=== PATIENT | female | born 1990 | race Caucasian/White ===

== ENCOUNTER → 2018-10-27 | Outpatient (CLI) | payer OTHER | LOC: LAB 13:26 → LAB SHORT 13:26 | DX: Z34.93 Encounter for supervision of normal pregnancy, unspecified, third trimester (principal) | CPT/HCPCS: 87081; 87653 ==

== ENCOUNTER 2018-11-19 18:31 | Inpatient (IN) | payer OTHER ==
[~2018-11-19] VITALS: Ht 177.8 cm; Wt 0.3 kg
[2018-11-19] MEDS ORDERED: ZOLOFT20 MG/ML (19:01)
[2018-11-19] MEDS ORDERED: Verotin-Gr Cap1 EACH (19:02)
[2018-11-19 19:08] LABS: BASOPHILS ABSOLUTE AUTO 0.02 K/mm3 (0.00-0.23); BASOPHILS PERCENT AUTO 0 % (0-2); EOSINOPHILS ABSOLUTE AUTO 0.07 K/mm3 (0.00-0.68); EOSINOPHILS PERCENT AUTO 1 % (0-6); Hematocrit 29.9 % (33.0-51.0); Hemoglobin 9.7 g/dL (11.5-16.0); IMMATURE GRAN ABSOLUTE AUTO 0.06 K/mm3 (0.00-0.10); IMMATURE GRAN PERCENT AUTO 1 % (0-1); LYMPHOCYTES ABSOLUTE AUTO 1.67 K/mm3 (0.84-5.20); LYMPHOCYTES PERCENT AUTO 15 % (21-46); MONOCYTES ABSOLUTE AUTO 0.99 K/mm3 (0.16-1.47); MONOCYTES PERCENT AUTO 9 % (4-13); Mean Corpuscular HGB 27.9 pg (26.0-34.0); Mean Corpuscular HGB Conc 32.4 g/dL (31.5-36.5); Mean Corpuscular Volume 86 fL (80-100); Mean Platelet Volume 10.7 fL (9.1-12.4); NEUTROPHILS ABSOLUTE AUTO 8.04 K/mm3 (1.96-9.15); NEUTROPHILS PERCENT AUTO 74 % (41-73); Platelet Count 190 K/mm3 (150-400); RDW Coefficient Variation 12.5 % (11.7-14.2); RDW Standard Deviation 38.9 fL (35.1-46.3); Red Blood Cell Count 3.48 M/mm3 (3.80-5.20); White Blood Cell Count 10.85 K/mm3 (4.00-11.30)
[2018-11-20 05:59] LABS: BASOPHILS ABSOLUTE AUTO 0.02 K/mm3 (0.00-0.23); BASOPHILS PERCENT AUTO 0 % (0-2); EOSINOPHILS ABSOLUTE AUTO 0.05 K/mm3 (0.00-0.68); EOSINOPHILS PERCENT AUTO 0 % (0-6); Hemoglobin 9.2 g/dL (11.5-16.0); IMMATURE GRAN ABSOLUTE AUTO 0.11 K/mm3 (0.00-0.10); IMMATURE GRAN PERCENT AUTO 1 % (0-1); LYMPHOCYTES ABSOLUTE AUTO 1.72 K/mm3 (0.84-5.20); LYMPHOCYTES PERCENT AUTO 11 % (21-46); MONOCYTES ABSOLUTE AUTO 0.83 K/mm3 (0.16-1.47); MONOCYTES PERCENT AUTO 5 % (4-13); Mean Corpuscular HGB 27.2 pg (26.0-34.0); Mean Corpuscular HGB Conc 30.7 g/dL (31.5-36.5); Mean Platelet Volume 10.5 fL (9.1-12.4); NEUTROPHILS ABSOLUTE AUTO 13.11 K/mm3 (1.96-9.15); NEUTROPHILS PERCENT AUTO 83 % (41-73); Platelet Count 159 K/mm3 (150-400); RDW Coefficient Variation 12.7 % (11.7-14.2); RDW Standard Deviation 41.1 fL (35.1-46.3); Red Blood Cell Count 3.38 M/mm3 (3.80-5.20); White Blood Cell Count 15.84 K/mm3 (4.00-11.30)
[2018-11-20 06:00] LABS: Mean Corpuscular Volume 89 fL (80-100)
--- NOTE | 2018-11-21 12:20 | NUR ---
DISCHARGE INSTRUCTIONS, WRITTEN AND VERBAL, GIVEN TO PT AND . ALL QUESTIONS AND CONCERNS ANSWERED. FOLLOW UP APPOINTMENT SCHEDULE, MMR VACCINE GIVEN. WRITTEN PRESCRIPTIONS HANDED TO PT. ALL PERSONAL BELONGINGS RETURNED. PT IS DISCHARGED HOME, DRIVEN BY .
== END 2018-11-21 12:55 | disposition home or self-care (01) | DRG 807 ==
LOC: OBS 18:31 → BC 18:42
PROVIDERS: ADMIT Registered Nurse Community Health
PROC: 10E0XZZ Delivery of Products of Conception, External Approach (ICD-10-PCS; principal; 2018-11-20)
PROC: 0KQM0ZZ Repair Perineum Muscle, Open Approach (ICD-10-PCS; 2018-11-20)
PROC: 10907ZC Drainage of Amniotic Fluid, Therapeutic from Products of Conception, Via Natural or Artificial Opening (ICD-10-PCS; 2018-11-20)
PROC: 6A550ZT Pheresis of Cord Blood Stem Cells, Single (ICD-10-PCS; 2018-11-20)
DX: O69.81X0 Labor and delivery complicated by cord around neck, without compression, not applicable or unspecified (principal); Z37.0 Single live birth; Z3A.39 39 weeks gestation of pregnancy; O70.1 Second degree perineal laceration during delivery
CPT/HCPCS: 36415; 51702; 85025; 90707; J1885; J2210; J2405; J2590; J3010; J7120

== ENCOUNTER → 2019-01-12 | Outpatient (CLI) | payer OTHER ==
[~2019-01-12] MED LIST: Verotin-Gr Cap1 EACH; ZOLOFT20 MG/ML
== END ==
LOC: LAB 11:27 → LAB SHORT 11:27
PROVIDERS: Registered Nurse Community Health
DX: Z12.4 Encounter for screening for malignant neoplasm of cervix (principal); N89.8 Other specified noninflammatory disorders of vagina
CPT/HCPCS: G0123

== ENCOUNTER → 2020-09-05 | Outpatient (CLI) | payer OTHER ==
[~2020-09-05] MED LIST changes: +HYDR1TAB94 PO
[2020-09-05 14:34] LABS: Hematocrit 33.8 % (33.0-51.0); Hemoglobin 10.3 g/dL (11.5-16.0)
[2020-09-05 16:20] LABS: Free Thyroxine 0.8 ng/dL (0.70-1.60); Thyroid Stimulating Hormone 1.78 uIU/mL (0.360-4.800); Triiodothyronine, Free 2.4 pg/mL (2.18-3.98)
== END ==
LOC: LAB 13:04 → LAB SHORT 13:04
PROVIDERS: Registered Nurse Community Health
DX: N92.0 Excessive and frequent menstruation with regular cycle (principal); N92.6 Irregular menstruation, unspecified; N94.6 Dysmenorrhea, unspecified
CPT/HCPCS: 84439; 84443; 84481; 85014; 85018

== ENCOUNTER 2021-08-09 11:57 | Day surgery (SDC) | payer OTHER ==
[~2021-08-09] VITALS: Ht 177.8 cm; Wt 76.5 kg
[~2021-08-09 11:57] MED LIST changes: +BUPR100 PO; +BUSPIRONE HCL7.5 M1 PO; +ORILISSA150 MG PO; +PRED20 PO
--- NOTE | 2021-08-09 14:17 | NUR ---
TURNED OVER PATIENT CARE TO DAGMAR LOPEZ, AFTER REPORT WAS GIVEN.
--- NOTE | 2021-08-09 14:57 | NUR ---
UP TO BATHROOM AT HIS TIME
--- NOTE | 2021-08-09 15:16 | NUR ---
ASSUMED CARE ABOUT 1420 VSS NO CHANGE SINCE ASSESSMENT.
--- NOTE | 2021-08-09 15:17 | NUR ---
MEDICATED PER ANNESTHESIOLOGIST FOR HEAD ACHE.
[2021-08-10 04:46] LABS: BASOPHILS ABSOLUTE AUTO 0.03 K/mm3 (0.00-0.23); BASOPHILS PERCENT AUTO 0 % (0-2); EOSINOPHILS PERCENT AUTO 0 % (0-6); Hematocrit 33.4 % (33.0-51.0); Hemoglobin 10.8 g/dL (11.5-16.0); IMMATURE GRAN ABSOLUTE AUTO 0.09 K/mm3 (0.00-0.10); IMMATURE GRAN PERCENT AUTO 1 % (0-1); LYMPHOCYTES ABSOLUTE AUTO 1.01 K/mm3 (0.84-5.20); LYMPHOCYTES PERCENT AUTO 6 % (21-46); MONOCYTES ABSOLUTE AUTO 0.68 K/mm3 (0.16-1.47); MONOCYTES PERCENT AUTO 4 % (4-13); Mean Corpuscular HGB 27.1 pg (26.0-34.0); Mean Corpuscular HGB Conc 32.3 g/dL (31.5-36.5); Mean Corpuscular Volume 84 fL (80-100); Mean Platelet Volume 10.1 fL (9.1-12.4); NEUTROPHILS ABSOLUTE AUTO 16.35 K/mm3 (1.96-9.15); NEUTROPHILS PERCENT AUTO 90 % (41-73); Platelet Count 276 K/mm3 (150-400); RDW Coefficient Variation 13.2 % (11.7-14.2); RDW Standard Deviation 40.9 fL (35.1-46.3); Red Blood Cell Count 3.99 M/mm3 (3.80-5.20); White Blood Cell Count 18.16 K/mm3 (4.00-11.30)
--- NOTE | 2021-08-10 08:00 | NUR ---
SUMMARY PT SLEEPING AFTER PO PAINMEDS. TORADOL GIVENTHIS AM TO INCREASE PAIN CONTROL WITHOUT DROWSY EFFECT.HOGAN DCD PER ORDERS.PT CURRENTLY WITHOUT VAG BLEED.
--- NOTE | 2021-08-10 08:45 | NUR ---
08/10/21 0844 PapMarko leal CORRECTION: CHARTED SPECIMEN AND INPUTED ORDERS
[2021-08-10] MEDS ORDERED: DOCU100 PO (15:19)
[2021-08-10] MEDS ORDERED: IBUP400 PO (15:20)
[2021-08-10] MEDS ORDERED: DULCOLAX400 MG/5 M PO (15:21)
[2021-08-10] MEDS ORDERED: PROM25 PO (15:22)
[2021-08-10] MEDS ORDERED: Percocet 5-3251 EACH PO (15:22)
[2021-08-10] MEDS ORDERED: SENNA LAXATIVE8.6 MG PO (15:23)
[2021-08-10] MEDS ORDERED: SIME80CH PO (15:24)
--- NOTE | 2021-08-10 17:04 | NUR ---
PT REPORTS VALENZUELA IS CONTROLLED TO ACCEPTABLE LEVEL WITH PO MEDS. DALTON FOOD AND FLUIDS WITHOUT NAUSEA. AMBULATING IN ROOM, VOIDING CLEAR YELLOW URINE, PT REPORTS PINKED TINGED TOILET PAPER AFTER WIPING MATT AREA.
--- NOTE | 2021-08-10 19:12 | NUR ---
DR CH HERE TO SEE PATIENT AND PATIENT CLEARED FOR DISCHARGE. ABD BINDER GIVEN TO PATIENT FOR COMFORT. DISCHARGE INSTRUCTIONS REVIEWED WITH PATIENT AND HER WHO VERBALIZE UNDERSTANDING OF. DISCHARGED TO HOME
== END 2021-08-10 19:15 | disposition home or self-care (01) ==
LOC: ORSCMMR 11:57 → ORD 13:30 → SURS 19:50 → ORSCMMR 08-10 19:15
PROVIDERS: Obstetrics & Gynecology
PROC: 0U5F4ZZ Destruction of Cul-de-sac, Percutaneous Endoscopic Approach (ICD-10-PCS; principal; 2021-08-09 13:30)
PROC: 8E0W4CZ Robotic Assisted Procedure of Trunk Region, Percutaneous Endoscopic Approach (ICD-10-PCS; principal; 2021-08-09 13:30)
PROC: 0UT94ZZ Resection of Uterus, Percutaneous Endoscopic Approach (ICD-10-PCS; principal; 2021-08-09 13:30)
PROC: 0UT74ZZ Resection of Bilateral Fallopian Tubes, Percutaneous Endoscopic Approach (ICD-10-PCS; principal; 2021-08-09 13:30)
DX: N92.0 Excessive and frequent menstruation with regular cycle (principal); N94.6 Dysmenorrhea, unspecified; N70.91 Salpingitis, unspecified; K66.0 Peritoneal adhesions (postprocedural) (postinfection); N80.3 Endometriosis of pelvic peritoneum; Z79.899 Other long term (current) drug therapy
CPT/HCPCS: 58571; 58662; S2900; 36415; 85025; 86850; 86900; 86901; 88305; A9270; J0690; J1100; J1885; J2250; J2370; J2405; J2704; J3010; J7120

== ENCOUNTER → 2021-08-18 | Outpatient (CLI) | payer OTHER ==
[~2021-08-18] MED LIST changes: +DOCU100 PO; +DULCOLAX400 MG/5 M PO; +IBUP400 PO; +PROM25 PO; +Percocet 5-3251 EACH PO; +SENNA LAXATIVE8.6 MG PO; +SIME80CH PO
== END ==
LOC: LAB SHORT 10:32
DX: R30.9 Painful micturition, unspecified (principal)
CPT/HCPCS: 87086

== ENCOUNTER → 2023-09-12 | Outpatient (CLI) | payer BC ==
[2023-09-12 17:01] LABS: BASOPHILS ABSOLUTE AUTO 0.08 K/mm3 (0.00-0.23); BASOPHILS PERCENT AUTO 1 % (0-2); EOSINOPHILS ABSOLUTE AUTO 0.51 K/mm3 (0.00-0.68); EOSINOPHILS PERCENT AUTO 5 % (0-6); Hematocrit 41.3 % (33.0-51.0); Hemoglobin 14.1 g/dL (11.5-16.0); IMMATURE GRAN ABSOLUTE AUTO 0.03 K/mm3 (0.00-0.10); IMMATURE GRAN PERCENT AUTO 0 % (0-1); LYMPHOCYTES ABSOLUTE AUTO 2.03 K/mm3 (0.84-5.20); LYMPHOCYTES PERCENT AUTO 18 % (21-46); MONOCYTES PERCENT AUTO 5 % (4-13); Mean Corpuscular HGB 31.2 pg (26.0-34.0); Mean Corpuscular HGB Conc 34.1 g/dL (31.5-36.5); Mean Corpuscular Volume 91 fL (80-100); Mean Platelet Volume 9.8 fL (9.1-12.4); NEUTROPHILS ABSOLUTE AUTO 8.03 K/mm3 (1.96-9.15); NEUTROPHILS PERCENT AUTO 71 % (41-73); Platelet Count 293 K/mm3 (150-400); RDW Coefficient Variation 11.9 % (11.7-14.2); RDW Standard Deviation 39.9 fL (35.1-46.3); Red Blood Cell Count 4.52 M/mm3 (3.80-5.20); White Blood Cell Count 11.28 K/mm3 (4.00-11.30)
[2023-09-14 09:16] LABS: A/G RATIO 2.2 (1.2-2.2); ALKALINE PHOSPHATASE, S 57 IU/L (44-121); ALT (SGPT) 14 IU/L (0-32); AST (SGOT) 16 IU/L (0-40); BILIRUBIN, TOTAL <0.2 mg/dL (0.0-1.2); BUN 16 mg/dL (6-20); BUN/CREATININE RATIO 21 (9-23); CALCIUM, SERUM 9.7 mg/dL (8.7-10.2); CARBON DIOXIDE, TOTAL 21 mmol/L (20-29); CHLORIDE, SERUM 102 mmol/L (96-106); CHOLESTEROL, TOTAL 220 mg/dL (100-199); CREATININE, SERUM 0.78 mg/dL (0.57-1.00); FERRITIN 44 ng/mL (15-150); GLOBULIN, TOTAL 2.2 g/dL (1.5-4.5); GLUCOSE, SERUM 90 mg/dL (70-99); HDL CHOLESTEROL 63 mg/dL (>39); IRON BIND.CAP.(TIBC) 332 ug/dL (250-450); IRON SATURATION 26 % (15-55); IRON, SERUM 85 ug/dL (27-159); LDL CHOLESTEROL CALC 133 mg/dL (0-99); POTASSIUM, SERUM 4.2 mmol/L (3.5-5.2); SODIUM, SERUM 137 mmol/L (134-144); TRIGLYCERIDES 135 mg/dL (0-149); UIBC 247 ug/dL (131-425); VLDL CHOLESTEROL CAL 24 mg/dL (5-40)
== END ==
LOC: LAB SHORT 15:00 → LAB 15:00
PROVIDERS: Family Medicine
DX: Z13.228 Encounter for screening for other metabolic disorders (principal); Z13.220 Encounter for screening for lipoid disorders; Z86.2 Personal history of diseases of the blood and blood-forming organs and certain disorders involving the immune mechanism
CPT/HCPCS: 80053; 80061; 82728; 83540; 83550; 84439; 84443; 85025